=== PATIENT | male | born 1975 | race Caucasian/White ===

== ENCOUNTER 2018-09-28 15:11 | Emergency (ER) | payer SELFPAY ==
[~2018-09-28] VITALS: Ht 162.6 cm; Wt 75.2 kg
[2018-09-28] MEDS ORDERED: ONDANSETRON HCL 4 MG/2 ML VIAL IM ONE (16:15)
[2018-09-28] MEDS ORDERED: MORPHINE SULFATE 4 MG/ML SYRINGE IM ONE (16:15)
[2018-09-28 17:29] VITALS: BP 159/99
[2018-09-28] MEDS ORDERED: PERTUSS(ACELL),DIPH,TET VAC/PF 0.5 ML VIAL IM ONE (18:00)
== END 2018-09-28 18:21 | disposition home or self-care (01) ==
LOC: EMS 15:12
DX: S93.402A Sprain of unspecified ligament of left ankle, initial encounter (principal); S50.12XA Contusion of left forearm, initial encounter; V03.99XA Pedestrian with other conveyance injured in collision with car, pick-up truck or van, unspecified whether traffic or nontraffic accident, initial encounter; Y93.89 Activity, other specified; Y92.511 Restaurant or cafe as the place of occurrence of the external cause; Y99.8 Other external cause status
CPT/HCPCS: 29515; 73080; 73090; 73610; 90471; 96372; 99283; J2270; J2405